=== PATIENT | female | born 1940 | race Caucasian/White ===

== ENCOUNTER 2024-04-13 15:59 | Emergency (ER) | payer OTHER, SELFPAY ==
[2024-04-13 16:01] VITALS: BP 140/75
--- NOTE | 2024-04-13 16:39 | ED.GENMED ---
History of Present Illness
General
Chief Complaint: Fall
Time Seen by Provider: 04/13/24 16:34
Travel History
Have you had any contact with someone who has COVID-19?: No
Do you have any symptoms of coronavirus? Fever > 100 degrees, chills, cough, shortness of breath, sore throat, loss of taste or smell, muscle aches, or headache?: No
History of Present Illness
History of Present Illness:
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 She has head pain and neck pain. She did have 15 seconds of left upper extremity tingling which has since resolved. She denies any other injury. She was
nauseated earlier but nausea has since resolved. She used to take aspirin up until a few weeks ago.
EXAM:
GENERAL: Well appearing but in mild distress
CERVICAL SPINE: She has midline C-spine tenderness, cervical collar is in place
HEAD: There is a small hematoma over the right side of the forehead
CHEST: No chest wall tenderness, normal heart sounds
LUNGS: Equal lung sounds, no respiratory distress
ABDOMEN: No abdominal tenderness, no peritoneal signs
EXTREMITIES: Normal active range of motion, no tenderness
NEURO: Excellent strength all extremities, appropriate mental status, normal speech/language
TIME OF INITIAL ENCOUNTER: 4:40 PM
NUMBER AND COMPLEXITY OF PROBLEMS ADDRESSED AT THE ENCOUNTER
� Chronic conditions affecting care: She last took aspirin a few weeks ago, CAD, high blood pressure
� Acute Exacerbation and/or Progression of Chronic Illness: This is an acute problem
� Differential Diagnosis includes: Intracranial hemorrhage, minor head injury, concussion, cervical spine injury
AMOUNT AND/OR COMPLEXITY OF DATA TO BE REVIEWED AND ANALYZED
� I performed an independent evaluation of and my interpretation is:
EKG:
CT: I personally viewed CT imaging of the brain and the cervical spine and see C1 fracture
X-rays:
Laboratory Studies: Pending
Other:
� Review of other/old records: The patient was admitted here with sick sinus syndrome/pacemaker placement in 2022
� Clinical information was obtained by an independent historian: I spoke to family at bedside
� Prescriptions/Medications Considered but not given:
� Further testing considered but not performed:
RISK OF COMPLICATIONS AND/OR MORBIDITY OR MORTALITY OF PATIENT MANAGEMENT
� Social determinants of health affecting care: Lives at home
� Discussion with other providers: Discussed CT findings with radiology, Dr. Poe�anterior/posterior C1 fracture along with type II fracture of the dens; I spoke to Dr. Odell trauma attending at [facility] who accepts to
his service also. I also called him again to update him of the concern for epidural component at the cervical spine. I reassessed the patient at 6:05 PM and she has excellent upper extremity strength. She has appropriate mental status with a GCS
of 15.
� Escalation of care including admission/observation vs risk of discharge considered: Given patient's age with midline C-spine tenderness, collar was placed immediately upon arrival, CT imaging reviewed. The patient vomited
shortly after she was given Tylenol. Will give IV Tylenol now. Planning transfer to [facility] (family lives in [place]).
Past History
Past History
ED Past Medical History: HTN and Other (Osteoarthritis)
ED Past Surgical History: Orthopedic
Social History
Tobacco: Non-smoker
Alcohol: None
Personal:
Living: with family
Employment: Retired
Family History
Family History: Other (Osteoporosis, Alzheimer's, [place],)
Phy Exam
Physical Exam
Physical Exam:
See HPI
Course
Orders/Labs/Results
Orders:
Orders
04/13/24 16:35
CT Cervical Spine W/o Iv Contr Urgent
Comment:
Reason For Exam: trauma
CT Head W/o Iv Contrast Urgent
Comment:
Reason For Exam: trauma
04/13/24 16:39
Acetaminophen [Tylenol] 1,000 mg PO NOW STA
04/13/24 17:58
Acetaminophen 1000MG/100Ml [Ofirmev] 1,000 mg in 100 ml IV ONCE
Acetaminophen IV Indication:: No IL & No Enteral Access
04/13/24 18:05
Basic Metabolic Panel Urgent
Complete Blood Count/With Diff Urgent
PTT Urgent
Prothrombin Time Urgent
Abnormal Lab Results
04/13/24
18:05
WBC 11.1 H 10^3/uL
(4.8-10.8)
Plt Count 102 L 10^3/uL
(130-400)
MPV 11.7 H fL
(7.4-10.4)
Abs Immat Gran (auto) 0.1 H 10^3/uL
(0-0.05)
Absolute Neuts (auto) 9.0 H 10^3/uL
(1.4-6.5)
Absolute Monos (auto) 0.7 H 10^3/uL
(0.1-0.6)
Immature Gran % 0.6 H %
(0-0.5)
Neutrophils % 81.0 H %
(42.2-75.2)
Lymphocytes % 11.6 L %
(20.5-51.1)
Chloride 96 L mmol/L
(98-107)
BUN 28 H mg/dl
(7-17)
Glucose 169 H mg/dl
(70-99)
04/13/24 18:05
04/13/24 18:05
Vital Signs
Initial and Last Documented VS:
Initial Vital Signs
Temp Pulse Resp BP Pulse Ox
98.1 F 73 20 140/75 94
04/13/24 16:01 04/13/24 16:01 04/13/24 16:01 04/13/24 16:01 04/13/24 16:01
Last Documented Vital Signs
Temp Pulse Resp BP Pulse Ox
98.1 F 62 24 121/54 94
04/13/24 16:01 04/13/24 20:15 04/13/24 20:15 04/13/24 20:00 04/13/24 20:15
*Critical Care Note
Total Time (30-74mins, 75-104mins- exclusive of procedures): Not Applicable
ED Attending Note
-
Portions of this chart may have been created with voice recognition software.� Occasional wrong word or��sound alike� substitutions may have occurred due to the inherent limitations of voice recognition software.
Discharge Plan
Departure
Patient Disposition: [facility]
Date of Disposition: 04/13/24
Time of Disposition: 17:50
Patient with high blood pressure during this ER visit?: Yes
Discharge Problem:
Closed cervical spine fracture
Prescriptions:
No Action
bisoprolol-hydrochlorothiazide 10-6.25 mg Tablet
1 tab PO DAILY
amlodipine 10 mg Tablet
10 mg PO DAILY
aspirin 81 mg Tablet,Delayed Release (Dr/Ec)
81 mg PO DAILY
calcium carbonate [Calcium 600] 600 mg calcium (1,500 mg) Tablet
1,200 mg PO DAILY
cholecalciferol (vitamin D3) [Vitamin D3] 125 mcg (5,000 unit) Tablet
125 mcg PO DAILY
omega 0-ppg-enu-fish oil [Fish Oil] 1,000 mg (120 mg-180 mg) Capsule
1 cap PO DAILY
ascorbic acid (vitamin C) [Vitamin C] 1,000 mg Tablet
1,000 mg PO DAILY
cod liver oil Capsule
1 cap PO DAILY
psyllium Packet
1 packet PO DAILY
vitamin B complex Tablet
1 tab PO DAILY
Referrals:
Jon Patino CRNP [Family Provider] -
Hospital Transfer
Other hospital: [facility]
I certify that the patient requires transfer: Yes
Discussed case with accepting physician: Dr. Odell
Reason for transfer: higher level of care
Interventions
Interventions:
*Risk Screen - Suicide Last Done: 04/13/24 16:01
*General Assessment Last Done: 04/13/24 16:01
*Neglect/Abuse Screening Last Done: 04/13/24 16:01
ED- Fall Risk Assessment Last Done: 04/13/24 17:21
*Nursing Disposition Last Done: 04/13/24 20:28
ED-Musculoskeletal Assessment Last Done: 04/13/24 17:21
ED- Neurological Assessment Last Done: 04/13/24 17:21
ED-Skin Assessment Last Done: 04/13/24 17:21
Discharge Date and Time
Discharge Date/Time: 04/13/24 20:30
Print Language: CAPE VERDEAN
[2024-04-13] MEDS: TYLENOL 1000 MG PO (17:01)
[2024-04-13 17:57] VITALS: BP 128/62
[2024-04-13 18:00] VITALS: BP 122/59
[2024-04-13] MEDS: OFIRMEV 100 IV (18:03)
[2024-04-13 18:04] VITALS: BMI 33.9
[2024-04-13 18:25] LABS: Blood Urea Nitrogen 28 mg/dl (7-17); Calcium 9.9 mg/dl (8.4-10.2); Carbon Dioxide 30 mmol/L (22-30); Chloride 96 mmol/L (98-107); Estimated Creatinine Clearance 71 ml/min; Glucose 169 mg/dl (70-99); Potassium 3.5 mmol/L (3.5-5.1); Sodium 138 mmol/L (135-145); eGFR > 60.00
[2024-04-13 18:27] LABS: % Basophils 0.3 % (0-2); % Eosinophils 0.4 % (0-6); % Immature Granulocytes 0.6 % (0-0.5); % Lymphocytes 11.6 % (20.5-51.1); % Monocytes 6.1 % (1.7-9.3); Absolute Immature Granulocytes 0.1 10^3/uL (0-0.05); Absolute Lymphocytes 1.3 10^3/uL (1.2-3.4); Absolute Monocytes 0.7 10^3/uL (0.1-0.6); Hematocrit 40.8 % (37.0-47.0); Hemoglobin 14.1 g/dL (12.0-16.0); Mean Corp Hgb Conc. 34.6 g/dL (33.0-37.0); Mean Corpuscular Hgb 28.3 pg (27.0-31.0); Mean Corpuscular Volume 81.8 fL (81.0-99.0); Mean Platelet Volume 11.7 fL (7.4-10.4); Nucleated Red Blood Cells % 0 %; Platelet Count 102 10^3/uL (130-400); Red Blood Cell Count 4.99 10^6/uL (4.20-5.40); Red Cell Dist. Width 13.4 % (11.5-14.5); White Blood Cell Count 11.1 10^3/uL (4.8-10.8)
[2024-04-13 18:29] LABS: APTT 28.8 Sec (23.4-35.0); INR 1.08; PT 13.8 Sec (11.4-14.6)
[2024-04-13 19:00] VITALS: BP 131/68
[2024-04-13 20:00] VITALS: BP 121/54
== END 2024-04-13 20:30 | disposition short-term general hospital (02) ==
LOC: EMR 15:59
PROVIDERS: EMERGENCY PHYSICIAN Emergency Medicine; FAMILY PHYSICIAN Nurse Practitioner Family
DX: S12.030A Displaced posterior arch fracture of first cervical vertebra, initial encounter for closed fracture (principal); S12.110A Anterior displaced Type II dens fracture, initial encounter for closed fracture; W19.XXXA Unspecified fall, initial encounter; I10 Essential (primary) hypertension
CPT/HCPCS: 99285; 96374; 70450; 72125; 80048; 85025; 85610; 85730

== ENCOUNTER → 2024-05-12 15:20 | Outpatient (REF) | payer OTHER, SELFPAY | LOC: HWRAD 15:20 | PROVIDERS: ATTENDING PHYSICIAN Neurological Surgery; FAMILY PHYSICIAN Nurse Practitioner Family | DX: S12.000A Unspecified displaced fracture of first cervical vertebra, initial encounter for closed fracture (principal) | CPT/HCPCS: 72125 ==

== ENCOUNTER → 2024-06-09 08:28 | Outpatient (REF) | payer OTHER, SELFPAY | LOC: RAD 08:28 | PROVIDERS: ATTENDING PHYSICIAN Nurse Practitioner Family | DX: Z95.0 Presence of cardiac pacemaker (principal) | CPT/HCPCS: 71046 ==

== ENCOUNTER → 2024-07-22 13:13 | Outpatient (REF) | payer OTHER, SELFPAY | LOC: MRI 13:13 | PROVIDERS: ATTENDING PHYSICIAN Neurological Surgery; FAMILY PHYSICIAN Nurse Practitioner Family | DX: S12.001 Unspecified nondisplaced fracture of first cervical vertebra (principal) | CPT/HCPCS: 72141 ==

== ENCOUNTER 2025-01-22 17:40 | Inpatient (IN) | payer OTHER, SELFPAY ==
[2025-01-22] VITALS (10 sets, daily range): BP systolic 124–157; BP diastolic 56–115; BMI 36.4
--- NOTE | 2025-01-22 13:00 | ED.GENMED ---
ED Provider Triage
<Promise Shelley PA-C - Last Filed: 01/22/25 13:02>
-
Patient seen by provider in Triage?: Seen in Triage
84-year-old female with a history of hypertension, sick sinus syndrome, neck fracture in March 2024 presents for increased confusion over the last several days noticed by her daughter. Her daughter is here with her. We got a note from the family
doctor who saw her today that the patient is more confused than baseline and she was hypoxic in the office to the 80s but not feeling any respiratory distress. They did an EKG apparently in the office which was unchanged. Patient has no complaints
here, she feels fine, she is not short of breath. She has not had any new fever or chills but maybe a slight cough according to her daughter.
A medical screening examination has been initiated by a qualified medical provider. Based on the assessment performed at this time, it has been determined that an emergent medical condition may exist and the patient has been informed that further
medical evaluation and possible additional diagnostic testing may be needed.
HPI: This is a medical evaluation conducted in person to initiate diagnostic evaluation and provide initial therapeutics. Please see further documentation by the treating clinician.
GENERAL: Alert , in no apparent distress
ENT: No visible abnormalities
LUNGS: No acute respiratory distress
NEUROLOGICAL: Alert and oriented
SKIN: Skin intact. No visible changes.
MUSCULOSKELETAL: Moving extremities normally
Brief exam seated in the wheelchair I could see that her right leg looked may be slightly larger than the left leg, it was difficult to assess
PSYCH: Normal and appropriate interaction
Patient is acutely hypoxic although in no respiratory distress she will be placed in a direct emergency department bed.
History of Present Illness
<Promise Shelley PA-C - Last Filed: 01/22/25 13:02>
General
Chief Complaint: Breathing Problem
Time Seen by Provider: 01/22/25 13:05
<Milton Prieto Jr., PA-C - Last Filed: 01/22/25 15:43>
General
Source: patient, spouse and family
Exam Limitations: none
Nursing documentation reviewed up to this point in time: agreed with
History of Present Illness
History of Present Illness:
84-year-old female with past medical history of CAD hypertension sick sinus syndrome presenting to the emergency department today with concerns of low pulse ox seen at the primary care doctor for routine visit. Has felt a little 'off' recently but
denies any specific chest pain shortness of breath no history of known lung disease .
Past History
<Promise Shelley PA-C - Last Filed: 01/22/25 13:02>
Past History
ED Past Medical History: HTN and Other (Osteoarthritis)
ED Past Surgical History: Orthopedic
Social History
Tobacco: Non-smoker
Alcohol: None
Personal:
Living: with family
Employment: Retired
Family History
Family History: Other (Osteoporosis, Alzheimer's, [place],)
Review of Systems
<Milton Prieto Jr., PA-C - Last Filed: 01/22/25 15:43>
Review of Systems
Allergies reviewed?: Yes
All Other Systems: ROS reviewed and negative except as documented in HPI and ROS
Phy Exam
<Milton Prieto Jr., PA-C - Last Filed: 01/22/25 15:43>
Physical Exam
Physical Exam:
GENERAL: Alert , in no apparent distress
EYE: pupils equal and reactive
NECK: Supple, no significant adenopathy.
ENT: o/p clr, mmm.
CARDIAC: Regular rate and rhythm .
LUNGS: Clear breath sounds bilaterally, no acute respiratory distress, no wheezes/rales/rhonchi
ABDOMEN: Soft, without focal tenderness, no r/g, no cvat
NEUROLOGICAL: Alert and oriented, no focal neuro deficits
SKIN: Warm and dry, skin intact.
MUSCULOSKELETAL: No edema, well perfused.
PSYCH: Normal and appropriate interaction.
Scores
<Milton Prieto Jr., PA-C - Last Filed: 01/22/25 15:43>
Heart Failure Risk
Heart Failure Risk Score: Not Applicable
Course
<Promise Shelley PA-C - Last Filed: 01/22/25 13:02>
Orders/Labs/Results
Orders:
Orders
01/22/25 13:28
EKG [Electrocardiogram (*1)] Urgent
Reason for Study: Shortness of Breath
CT Chest PE Study Urgent
Comment:
Reason For Exam: hypoxia immobilized
01/22/25 13:29
EKG- Treatment ONCE
01/22/25 13:36
Complete Blood Count/With Diff Urgent
Comprehensive Metabolic Panel Urgent
NT-proBNP Urgent
Comment: ADD ON
PT/INR [Prothrombin Time] Urgent
Troponin I Urgent
Venous Blood Gas Urgent
%Oxygen/Room Air: 98
01/22/25 14:16
COVID-19 Antigen Urgent
Source: Nasal Swab
Influenza A+B Rapid Molecular Urgent
ELIF Source: Nasal Swab
Specimen Description:
01/22/25 15:20
Add On- LAB Urgent
Tests Added?: BNP
01/22/25 15:38
Furosemide [Lasix] 40 mg IV NOW STA
Abnormal Lab Results
01/22/25
13:36
RBC 5.62 H 10^6/uL
(4.20-5.40)
Hct 48.8 H %
(37.0-47.0)
MCHC 31.6 L g/dL
(33.0-37.0)
Plt Count 123 L 10^3/uL
(130-400)
MPV 10.9 H fL
(7.4-10.4)
Absolute Neuts (auto) 6.7 H 10^3/uL
(1.4-6.5)
Absolute Monos (auto) 1.1 H 10^3/uL
(0.1-0.6)
Monocytes % 10.6 H %
(1.7-9.3)
VBG pCO2 53 H mmHg
(35-48)
VBG HCO3 34.4 H mmol/L
(22-27)
Chloride 96 L mmol/L
(98-107)
Carbon Dioxide 35 H mmol/L
(22-30)
BUN 25 H mg/dl
(7-17)
Glucose 118 H mg/dl
(70-99)
01/22/25 13:36
01/22/25 13:36
Vital Signs
Initial and Last Documented VS:
Initial Vital Signs
Temp Pulse Resp BP Pulse Ox
98.0 F 67 16 124/82 84
01/22/25 12:56 01/22/25 12:56 01/22/25 12:56 01/22/25 12:56 01/22/25 12:56
Last Documented Vital Signs
Temp Pulse Resp BP Pulse Ox
98.0 F 64 26 137/56 95
01/22/25 12:56 01/22/25 15:30 01/22/25 15:30 01/22/25 15:00 01/22/25 15:30
<Milton Prieto Jr., PA-Bettie - Last Filed: 01/22/25 15:43>
Orders/Labs/Results
Orders:
Orders
01/22/25 13:28
EKG [Electrocardiogram (*1)] Urgent
Reason for Study: Shortness of Breath
CT Chest PE Study Urgent
Comment:
Reason For Exam: hypoxia immobilized
01/22/25 13:29
EKG- Treatment ONCE
01/22/25 13:36
Complete Blood Count/With Diff Urgent
Comprehensive Metabolic Panel Urgent
NT-proBNP Urgent
Comment: ADD ON
PT/INR [Prothrombin Time] Urgent
Troponin I Urgent
Venous Blood Gas Urgent
%Oxygen/Room Air: 98
01/22/25 14:16
COVID-19 Antigen Urgent
Source: Nasal Swab
Influenza A+B Rapid Molecular Urgent
ELIF Source: Nasal Swab
Specimen Description:
01/22/25 15:20
Add On- LAB Urgent
Tests Added?: BNP
01/22/25 15:38
Furosemide [Lasix] 40 mg IV NOW STA
Abnormal Lab Results
01/22/25
13:36
RBC 5.62 H 10^6/uL
(4.20-5.40)
Hct 48.8 H %
(37.0-47.0)
MCHC 31.6 L g/dL
(33.0-37.0)
Plt Count 123 L 10^3/uL
(130-400)
MPV 10.9 H fL
(7.4-10.4)
Absolute Neuts (auto) 6.7 H 10^3/uL
(1.4-6.5)
Absolute Monos (auto) 1.1 H 10^3/uL
(0.1-0.6)
Monocytes % 10.6 H %
(1.7-9.3)
VBG pCO2 53 H mmHg
(35-48)
VBG HCO3 34.4 H mmol/L
(22-27)
Chloride 96 L mmol/L
(98-107)
Carbon Dioxide 35 H mmol/L
(22-30)
BUN 25 H mg/dl
(7-17)
Glucose 118 H mg/dl
(70-99)
01/22/25 13:36
01/22/25 13:36
Vital Signs
Initial and Last Documented VS:
Initial Vital Signs
Temp Pulse Resp BP Pulse Ox
98.0 F 67 16 124/82 84
01/22/25 12:56 01/22/25 12:56 01/22/25 12:56 01/22/25 12:56 01/22/25 12:56
Last Documented Vital Signs
Temp Pulse Resp BP Pulse Ox
98.0 F 64 26 137/56 95
01/22/25 12:56 01/22/25 15:30 01/22/25 15:30 01/22/25 15:00 01/22/25 15:30
<Milton Prieto Jr., PA-C - Last Filed: 01/22/25 15:43>
MDM/Problems Addressed
MDM/Problems Addressed:
84-year-old female presenting to the emergency department today with concerns of hypoxia seen as an outpatient. Has felt somewhat 'off' recently denies specific chest pain or shortness of breath. No history of lung disease does have a history of
heart disease. EKG here without emergent findings troponin negative lungs are clear on examination. Hemoglobin normal. CT scan showing possible evidence of pulmonary hypertension as well as potential mild interstitial edema. Patient was given
dose of Lasix but otherwise will need to be admitted for further assessment.
<Milton Prieto Jr., PA-C - Last Filed: 01/22/25 15:43>
*Critical Care Note
Total Time (30-74mins, 75-104mins- exclusive of procedures): Not Applicable
ED Attending Note
<Promise Shelley PA-C - Last Filed: 01/22/25 13:02>
-
Portions of this chart may have been created with voice recognition software.� Occasional wrong word or��sound alike� substitutions may have occurred due to the inherent limitations of voice recognition software.
Discharge Plan
Departure
Patient Disposition: Admit
Date of Disposition: 01/22/25
Time of Disposition: 15:43
Admit to: Telemetry
Admit to doctor: Tiffanie
Presentation/result/management discussed w/ accepting MD/DO: Hospitalist
Patient with high blood pressure during this ER visit?: No
Condition: Good
Covid-19: Not Applicable
Discharge Problem:
Hypoxia
Prescriptions:
No Action
bisoprolol-hydrochlorothiazide 10-6.25 mg Tablet
1 tab PO DAILY
amlodipine 10 mg Tablet
10 mg PO DAILY
aspirin 81 mg Tablet,Delayed Release (Dr/Ec)
81 mg PO DAILY
calcium carbonate [Calcium 600] 600 mg calcium (1,500 mg) Tablet
1,200 mg PO DAILY
cholecalciferol (vitamin D3) [Vitamin D3] 125 mcg (5,000 unit) Tablet
125 mcg PO DAILY
omega 9-yei-cah-fish oil [Fish Oil] 1,000 mg (120 mg-180 mg) Capsule
1 cap PO DAILY
ascorbic acid (vitamin C) [Vitamin C] 1,000 mg Tablet
1,000 mg PO DAILY
cod liver oil Capsule
1 cap PO DAILY
psyllium Packet
1 packet PO DAILY
vitamin B complex Tablet
1 tab PO DAILY
Referrals:
Jon Patino CRNP [Family Provider] -
Interventions
Interventions:
*Risk Screen - Suicide Last Done: 01/22/25 12:56
*General Assessment Last Done: 01/22/25 13:21
*Neglect/Abuse Screening Last Done: 01/22/25 12:56
ED- Fall Risk Assessment Last Done: 01/22/25 13:21
*ED COVID-19 Vaccine History Last Done: 01/22/25 13:21
ED- Pulmonary Assessment Last Done: 01/22/25 13:28
ED- Neurological Assessment Last Done: 01/22/25 13:21
ED- Cardiac Assessment Last Done: 01/22/25 13:28
ED Swallowing Screen Last Done: 01/22/25 13:21
Discharge Date and Time
Print Language: TURKISH
[2025-01-22 13:46] LABS: Venous Blood Gas HCO3 34.4 mmol/L (22-27); Venous Blood Gas O2 Sat % 77.2 %; Venous Blood Gas pCO2 53 mmHg (35-48); Venous Blood Gas pH 7.42 (7.32-7.43); Venous Blood Gas pO2 42 mmHg (30-50)
[2025-01-22 13:56] LABS: INR 1.06; PT 14.3 Sec (11.4-14.6)
[2025-01-22 13:57] LABS: % Basophils 0.5 % (0-2); % Eosinophils 1.7 % (0-6); % Immature Granulocytes 0.4 % (0-0.5); % Monocytes 10.6 % (1.7-9.3); % Neutrophils 62.8 % (42.2-75.2); Absolute Basophils 0.1 10^3/uL (0-0.2); Absolute Eosinophils 0.2 10^3/uL (0-0.7); Absolute Lymphocytes 2.6 10^3/uL (1.2-3.4); Absolute Monocytes 1.1 10^3/uL (0.1-0.6); Absolute Neutrophils 6.7 10^3/uL (1.4-6.5); Hematocrit 48.8 % (37.0-47.0); Hemoglobin 15.4 g/dL (12.0-16.0); Mean Corp Hgb Conc. 31.6 g/dL (33.0-37.0); Mean Corpuscular Hgb 27.4 pg (27.0-31.0); Mean Corpuscular Volume 86.8 fL (81.0-99.0); Mean Platelet Volume 10.9 fL (7.4-10.4); Nucleated Red Blood Cells % 0 %; Platelet Count 123 10^3/uL (130-400); Red Blood Cell Count 5.62 10^6/uL (4.20-5.40); Red Cell Dist. Width 13.9 % (11.5-14.5); White Blood Cell Count 10.6 10^3/uL (4.8-10.8)
[2025-01-22 13:58] LABS: ALT (SGPT) 15 U/L (0-35); AST (SGOT) 25 U/L (14-36); Albumin 4.9 g/dl (3.5-5.0); Alkaline Phosphatase 83 U/L (38-126); Blood Urea Nitrogen 25 mg/dl (7-17); Calcium 9.4 mg/dl (8.4-10.2); Carbon Dioxide 35 mmol/L (22-30); Chloride 96 mmol/L (98-107); Glucose 118 mg/dl (70-99); Potassium 3.9 mmol/L (3.5-5.1); Sodium 140 mmol/L (135-145); Total Protein 8.1 g/dl (6.3-8.2); eGFR > 60.00
[2025-01-22 14:09] LABS: Troponin I < 0.012 ng/ml
[2025-01-22 15:04] LABS: COVID-19 Antigen Negative (Negative)
[2025-01-22] MEDS: LASIX 40 MG IV (15:50)
--- NOTE | 2025-01-22 16:02 | HPS.HSE ---
Family Physician
-
Family Physician: ANNE Mcknight
Chief Complaint
-
Confusion, hypoxia, headache
History of Present Illness
84-year-old female with daughter presenting for increased confusion over the last several days. She was noted to be hypoxic today at her PCP with pulse ox in the 80s but no acute respiratory distress. She had EKG done in office which did been
unchanged since prior. In the ER CT PE study showed possible evidence of pulm HTN and mild pulmonary edema she was given single dose of Lasix placed on 3 L nasal cannula with oxygen in the mid 90s.
Patient denies fever, chills, chest pain, palpitations, cough, shortness of breath, abdominal pain, nausea, vomiting, diarrhea, urinary symptoms. She has past medical history of hypertension, osteoarthritis, SSS-Status post dual-chamber permanent
pacemaker Medtronic on 03/07/2023 Thrombocytopenia-unclear
Medical History
Past Medical History
Past Medical History: Reports Other
Additional Past Medical History:
SSS-Status post dual-chamber permanent pacemaker Medtronic on 03/07/2023
HTN
Thrombocytopenia
Osteoarthritis
Past Surgical History: Reports Other
Additional Past Surgical History:
Hemorrhoidectomy
Left ankle surgery
Left knee surgery
Laminectomy
SSS-Status post dual-chamber permanent pacemaker Medtronic on 03/07/2023
Social History
Tobacco: Non-smoker
Alcohol: None
Drug: None
Personal: Single
Living: With Family (Daughter Flora)
Employment: Retired
Family History
Family History: Other (Mother old age Alzheimer's father age 70 unsure 1 sister Alzheimer's 3 brothers 1 age 55 unsure 2 other brothers patient is unsure)
Allergies / Home Medications
Allergies reflects when Allergies were last updated in [facility].
Home Medications with original date entered in [facility]
Allergy/Medication List:
Allergies
Allergy/AdvReac Type Severity Reaction Status Date / Time
cephalexin monohydrate Allergy Unknown Verified 01/22/25 12:59
[From Keflex]
Latex, Natural Rubber Allergy Unknown Verified 01/22/25 12:59
Home Medications
amlodipine 10 mg tablet 10 mg PO DAILY Blood pressure 03/28/18
acetaminophen 500 mg tablet (Tylenol Extra Strength) 1,000 mg PO Q6HPRN PRN mild pain/LINDA 01/22/25
bisoprolol fumarate 5 mg tablet 5 mg PO DAILY 01/22/25
psyllium husk 3.4 gram/5.4 gram oral powder (Metamucil) 1 tbsp PO DAILY 01/22/25
Review of Systems
-
History Source: Patient
A 12 point ROS was completed and negative except as noted: Yes
Constitutional: Denies Fever, Fatigue or Chills
EENT: Denies Sore Throat or Runny Nose
Respiratory: Reports Other (Hypoxia at rest and with activity); Denies Cough or Trouble Breathing
Cardiac: Denies Chest Pain, Diaphoresis, Palpitations or Syncope
Abdomen/GI: Denies Abdominal Pain, Nausea, Vomiting, Diarrhea, Constipated, Bloody Stools, Black Stools or Anorexia
: Denies Dysuria, Frequency, Flank Pain, Incontinence, Difficulty Voiding or Urgency
Musculoskeletal: Reports Edema (Trace bilateral lower legs); Denies Joint Pain or Joint Swelling
Skin: Reports Other (Right lower leg lateral aspect erythema small amount around scabbed area); Denies Itching or Rash
Neurological: Reports Headache (Posterior headache); Denies Dizzy
Endocrine: Reports No Symptoms
Hematologic/Lymphatic: Reports No Symptoms
Psych: Reports Calm
Physical Exam
Vital Signs
Vital Signs
Temp Pulse Resp BP Pulse Ox
98.0 F 86 26 137/84 95
01/22/25 12:56 01/22/25 15:50 01/22/25 15:30 01/22/25 15:50 01/22/25 15:30
Physical Exam
GI: Soft, Non Tender, Non Distended, Normal Bowel Sounds and No Hepatosplenomegaly
Rectal: Deferred by Provider
Genito-urinary: Other (Pure wick cath draining clear yellow)
Musculoskeletal: No Clubbing, No Cyanosis, Edema, Left Lower Extremity (+1 lower leg) and Edema, Right Lower Extremity (+1 lower leg with Right lower leg lateral aspect erythema small amount around scabbed area); No Edema, Left Upper Extremity or
Edema, Right Upper Extremity
Skin: Warm, Dry and Other (Right lower leg lateral aspect erythema small amount around scabbed area); No Rash
Neuro: AO x 3 (Name, place, year, president but not how siblings does know all of her medical history is aware of current confusion but unsure why), No Motor Deficits, Nonfocal/grossly intact, Cranial Nerves Intact and No Sensory Deficits; No
Slurred Speech, Facial Droop, Tremors or Sedated
Psych: Calm
Laboratory Results
-
01/22/25 13:36
01/22/25 13:36
Laboratory Results
PT 14.3 Sec (11.4-14.6) 01/22/25 13:36
INR 1.06 01/22/25 13:36
Total Bilirubin 1.0 mg/dl (0.2-1.3) 01/22/25 13:36
AST 25 U/L (14-36) 01/22/25 13:36
ALT 15 U/L (0-35) 01/22/25 13:36
Alkaline Phosphatase 83 U/L (38-126) 01/22/25 13:36
Troponin I < 0.012 ng/ml 01/22/25 13:36
Data Reviewed
-
CT Scan: Report Reviewed by me
Lab Data: Labs Reviewed by me
Impression/Plan
-
Impression/plan:
Admit to telemetry
#Acute hypoxic respiratory insufficiency secondary to PULMONARY HTN/ PULM EDEMA
COVID/flu-negative
-84% RA, 95% 2 L nasal cannula
-I/O, daily weights
-Patient given Lasix 40 mg once in ER
-BNP 371
-Consult [facility]ology
-Repeat 2D echo
-Consult pulm
2D echo 03/07/2023: EF 55-60%, normal LVS LVSF, no wall abnormalities, mild LVH, trace AR, trace TR, PASP [address] PE study:
1. No evidence of central pulmonary embolism.
2. Prominent caliber bilateral right and main pulmonary arteries. Is there a history of pulmonary artery hypertension?
3. Slight prominence of the pulmonary interstitium and some minor groundglass opacification bilaterally. Findings could represent mild interstitial edema.
4. Cardiomegaly.
5. Elevated right hemidiaphragm again seen.
6. Predominantly stable small volume loculated fluid within the left major fissure.
7. Small bilateral simple renal cysts.
#Headache with confusion unclear etiology
Oriented to name, place, year, president forgetful of how siblings passed she states she normally knows this
-We will check CT head
-Tylenol 650 mg now and as needed
# Uncontrolled HTN/HTN�benign
bp 145/115
Continue amlodipine 10 mg daily, bisoprolol 5 mg daily
-IV Hydralazine 10 mg every 6 hours SBP> 165
Possible infected area surrounding scab right lower extremity
-Right lower leg lateral aspect erythema small amount pea-sized around scabbed area
-Will apply bacitracin ointment
#Acute on chronic thrombocytopenia unclear etiology
Plt 123 prior March 2024
Follow CBC
SSS-Status post dual-chamber permanent pacemaker [employer] on 03/07/2023
-Placed by [facility]ology
#Osteoarthritis
-Continue vitamin D3, calcium carbonate
DVT prophylaxis
Subcu heparin
Full code
[2025-01-22 16:15] LABS: NT-proBNP 371 pg/ml
[2025-01-22] MEDS: TYLENOL 650 MG PO (16:57)
[2025-01-22] MEDS: LOVENOX 40 MG SC (22:24)
[2025-01-23] VITALS (7 sets, daily range): BP systolic 123–151; BP diastolic 64–76; PULSE 63–65; O2SAT 95; BMI 36.0
[2025-01-23 07:44] LABS: % Basophils 0.3 % (0-2); % Eosinophils 1.9 % (0-6); % Immature Granulocytes 0.4 % (0-0.5); % Lymphocytes 26.8 % (20.5-51.1); % Neutrophils 59.6 % (42.2-75.2); Absolute Eosinophils 0.2 10^3/uL (0-0.7); Absolute Lymphocytes 2.4 10^3/uL (1.2-3.4); Absolute Neutrophils 5.4 10^3/uL (1.4-6.5); Hematocrit 45.4 % (37.0-47.0); Hemoglobin 14.9 g/dL (12.0-16.0); Mean Corp Hgb Conc. 32.8 g/dL (33.0-37.0); Mean Corpuscular Hgb 27.9 pg (27.0-31.0); Mean Corpuscular Volume 84.9 fL (81.0-99.0); Mean Platelet Volume 10.7 fL (7.4-10.4); Nucleated Red Blood Cells % 0 %; Platelet Count 108 10^3/uL (130-400); Red Blood Cell Count 5.35 10^6/uL (4.20-5.40)
--- NOTE | 2025-01-23 08:21 | CON.CAR ---
Addendum entered and electronically signed by Lane Jones MD 01/23/25 14:02:
I saw and examined the patient.
The Medication Aide's note was reviewed and I agree with the note.
Comment: Briefly, 84-year-old woman with past medical history of permanent pacemaker for sick sinus syndrome who presents with altered mental status and was found to be hypoxic with likely pulmonary edema on CT chest concerning for acute
decompensated heart failure.
Patient does not carry diagnosis of heart failure and is not maintained on a diuretic as an outpatient
However she has been hypoxic here and is still requiring supplemental oxygen today
CT chest suggestive of pulmonary edema
However proBNP is only 371 here
Agree with trial of IV diuresis to see if this improves her respiratory status, wean oxygen as able
Check echo to assess for new cardiomyopathy or valvular pathology
Rest per Shama Contreras
Original Note:
Consultation
Consultation Request
Date/Time Consultation Requested: 01/23/2025
Date/Time Consultation Performed: 01/23/2025
Requesting Provider: Dr. Moreno
Performing Provider: Shama Contreras PA-C for Dr. Jones
Reason for Consultation: Hypoxia, pulmonary edema on CT
Medical History
-
History of Present Illness:
HPI: Maricruz is an 84 year old female with PMH of SSS s/p PPM placement 02/2023 and HTN who presented to [facility] for evaluation of hypoxia which was noted at PCP office. Reportedly there was also concern regarding some confusion over the past few days,
but patient does not recall this when asked this AM. She denies any chest pain, palpitations, dizziness, lightheadedness, LE edema, SOB, or weight gain. In ER, she was placed on 3L NC and had CT of chest which showed possible pulmonary HTN as well
as mild interstitial edema. She was given a single dose of IV lasix in the ER and was admitted for further workup and evaluation. She continues to feel well this AM with no complaints. Cardiology consulted given interstitial edema on CT scan. Head
CT without acute intracranial abnormality.
PMH:
SSS s/p Medtronic PPM 03/07/2023
HTN
Past Medical History
Past Medical History: Other (in HPI)
Past Surgical History: Cardiac (PPM 02/2023), Orthopedic and Other (hemorrhoidectomy)
Social History
Tobacco: Non-Smoker
Alcohol: None
Drug: None
Personal:
Living: With Family
Employment: Retired
Family History
Family History: Cancer and Hypertension
Allergies / Home Medications
Allergy/AdvReac Type Severity Reaction Status Date / Time
cephalexin monohydrate Allergy Unknown Verified 01/22/25 12:59
[From Keflex]
Latex, Natural Rubber Allergy Unknown Verified 01/22/25 12:59
�Medication �Instructions �Recorded �Confirmed �Type
amlodipine 10 mg tablet 10 mg PO DAILY Blood pressure 03/28/18 01/22/25 History
acetaminophen 500 mg tablet 1,000 mg PO Q6HPRN PRN mild pain/LINDA 01/22/25 01/22/25 History
(Tylenol Extra Strength)
bisoprolol fumarate 5 mg tablet 5 mg PO DAILY 01/22/25 01/22/25 History
psyllium husk 3.4 gram/5.4 gram 1 tbsp PO DAILY 01/22/25 01/22/25 History
oral powder (Metamucil)
Review of Systems
-
History Source: Patient
All other systems: Negative unless noted
Physical Exam
Vital Signs
Temp Pulse Resp BP Pulse Ox
98.1 F 61 20 131/64 95
01/23/25 07:42 01/23/25 07:42 01/23/25 07:42 01/23/25 07:42 01/23/25 07:42
Lab Results
01/23/25 07:12
Troponin I < 0.012 ng/ml 01/22/25 13:36
Gby-C-Tmvbuzhdyyo Pept 371 pg/ml 01/22/25 13:36
Physical Exam
General: Well Developed, Well Nourished and No Apparent Distress
HEENT: Normocephalic, Anicteric and Moist Mucous Membranes
Respiratory: Clear and Non Labored Respirations
Cardiac: S1/S2 and Regular Rhythm
Musculoskeletal: No Clubbing, No Cyanosis and No Edema
Skin: Warm and Dry
Neuro: AO x 3 and Nonfocal/Grossly Intact
Psych: Calm
Impression / Plan
-
PCP: ANNE Mcknight
Harness Tier: Dr. Meeks
PMH:
Hypoxia
Confusion
Pulmonary edema on CT of chest
SSS s/p Medtronic PPM 03/07/2023
HTN
Lexiscan mibi 02/29/16: Large predominantly fixed anterior defect consistent with infarction, small area of reversibility at the apex and with preserved EF this suggests breast attenuation, EF 58%
Echo 08/25/2016: EF 55-60%, no significant valve disease
Echo 03/07/2023: EF 55-60%, mild cLVH, trace AR, trace TR, estimated PAP 38 mmHg
Echo 01/23/2025: Study pending
Plan:
-Presented with confusion and hypoxia which was noted at PCP office.
-Pulmonary HTN and mild interstitial edema noted on CT of chest 01/22. ProBNP 371.
-Given a single dose of IV lasix 40mg. Weight down 2lbs overnight, down to 216 lbs.
-Creat stable at 0.7. Continues to deny SOB, but remains on 4L NC.
-Will give another dose of IV lasix today.
-Follow daily weights, I&Os.
-Check echo today. Prior echo in 2022 noted preserved EF w/ no significant valvular disease.
-BP stable this AM, continue bisoprolol and amlodipine
-Troponin negative x1. No chest pain. ECG SR with 1st degree AV block.
-No arrhythmias noted on telemetry.
-K 3.7, will replete.
HPI: Maricruz is an 84 year old female with PMH of SSS s/p PPM placement 02/2023 and HTN who presented to [facility] for evaluation of hypoxia which was noted at PCP office. Reportedly there was also concern regarding some confusion over the past few days,
but patient does not recall this when asked this AM. She denies any chest pain, palpitations, dizziness, lightheadedness, LE edema, SOB, or weight gain. In ER, she was placed on 3L NC and had CT of chest which showed possible pulmonary HTN as well
as mild interstitial edema. She was given a single dose of IV lasix in the ER and was admitted for further workup and evaluation. She continues to feel well this AM with no complaints. Cardiology consulted given interstitial edema on CT scan. Head
CT without acute intracranial abnormality.
Data Reviewed
-
EKG: Tracing Personally Visualized and interpreted
CT Scan: Report Reviewed by me
Labs: Labs Reviewed by me
Old Records: Reviewed
[2025-01-23 08:38] LABS: ALT (SGPT) 13 U/L (0-35); AST (SGOT) 22 U/L (14-36); Albumin 4.1 g/dl (3.5-5.0); Alkaline Phosphatase 79 U/L (38-126); Blood Urea Nitrogen 22 mg/dl (7-17); Calcium 9.2 mg/dl (8.4-10.2); Carbon Dioxide 37 mmol/L (22-30); Chloride 96 mmol/L (98-107); Estimated Creatinine Clearance 69 ml/min; Glucose 99 mg/dl (70-99); HDL Cholesterol 51 mg/dl; LDL Cholesterol, Calculated 75 mg/dl; Potassium 3.7 mmol/L (3.5-5.1); Sodium 140 mmol/L (135-145); Total Cholesterol 143 mg/dl (50-199); Total Protein 7.2 g/dl (6.3-8.2); Triglyceride 86 mg/dl (10-149); Very Low Density Lipoprotein 17 mg/dl (0-30); eGFR > 60.00
--- NOTE | 2025-01-23 09:24 | PTOTSP ---
pt currently requires supervision to no assistance to complete simple ADLs, functional transfers, ambulation. pt currently requires 4LO2, does not wear at baseline. will defer to PT for endurance, ambulation. no acute OT needs identified at this
time, will sign off.
[2025-01-23] MEDS: NORVASC 10 MG PO (10:00)
[2025-01-23] MEDS: ZEBETA 5 MG PO (10:00)
[2025-01-23] MEDS: KCL 40 MEQ PO (10:04)
[2025-01-23] MEDS: LASIX 40 MG IV (10:04)
--- NOTE | 2025-01-23 12:36 | CM ---
Met with patient to obtain information for assessment. Patient's granddaughter was at bedside. Patient stated that she lives with her son, daughter in law and their children (Her grandchildren) in a two story home with one step. Patient stated that
she is independent/supervision with bathing, dressing, personal care and all ADLs. She does have a walker she uses and a neck brace. She has never had VN services and has not been to a SNF.
Patient has a prescription plan and uses, [facility] pharmacy in [place] for all of her medications.
Her PCP is, Jon Patino.
Patient stated that she is hopeful that she will be able to return home when stable. Will watch for o2 needs.
--- NOTE | 2025-01-23 13:36 | CON.PUL ---
Consultation
Consultation Request
Date/Time Consultation Requested: 01/23/2025
Date/Time Consultation Performed: 01/23/2025
Requesting Provider: Dr. Moreno
Performing Provider: Dr. Jas Beatty
Medical History
-
History of Present Illness:
84-year-old female who presented with his daughter to the emergency room with increased confusion over the last several days. At primary care doctor's office she was found to be hypoxic down to 80%. Asymptomatic from the pulmonary perspective.
Evaluation including a CT of the chest that showed possible evidence of pulmonary hypertension with mild pulmonary edema, diuresis was started. She required low rate supplemental oxygen.
She denies any previous pulmonary issues.
Denies cough, fevers, phlegm production, feeling sick.
Past Medical History
Past Medical History: Other (See assessment and plan)
Social History
Tobacco: Non-smoker
Alcohol: None
Drug: None
Personal: Single
Living: With Family (José Miguel Daniels)
Employment: Retired
Family History
Family History: Reviewed & Not Pertinent
Allergies / Home Medications
Allergies
Allergy/AdvReac Type Severity Reaction Status Date / Time
cephalexin monohydrate Allergy Unknown Verified 01/22/25 12:59
[From Keflex]
Latex, Natural Rubber Allergy Unknown Verified 01/22/25 12:59
Home Medications
�Medication �Instructions �Recorded �Confirmed �Last Taken �Type
amlodipine 10 mg tablet 10 mg PO DAILY Blood pressure 03/28/18 01/22/25 Unknown History
acetaminophen 500 mg tablet 1,000 mg PO Q6HPRN PRN mild pain/LINDA 01/22/25 01/22/25 Unknown History
(Tylenol Extra Strength)
bisoprolol fumarate 5 mg tablet 5 mg PO DAILY 01/22/25 01/22/25 Unknown History
psyllium husk 3.4 gram/5.4 gram 1 tbsp PO DAILY 01/22/25 01/22/25 Unknown History
oral powder (Metamucil)
Review of Systems
-
History Source: Patient
All other systems: Negative unless noted
Vitals / Labs / Diagnostic Testing
Vital Signs
Temp Pulse Resp BP Pulse Ox
98.1 F 61 20 131/64 95
01/23/25 07:42 01/23/25 07:42 01/23/25 07:42 01/23/25 07:42 01/23/25 07:42
Lab Data
01/23/25 07:12
01/23/25 07:12
Laboratory Results
01/22/25
13:36
PT 14.3
INR 1.06
Microbiology
01/22/25 14:16 Nasal Swab Influenza Types A & B (RUDY) - Final
Negative for Influenza A & B, NAAT
Negative results must be combined with clinical observations
and patient history.
Nucleic Acid Amplification test (NAAT)performed on the
[employer] NOW platform.
Diagnostic Testing:
Physical Exam
-
HEENT: Normocephalic
Cardiovascular: S1/S2
Respiratory: Non-Labored Respirations
GI: Soft and Non Distended
Neurology: Awake, Oriented and No Motor Deficits
Skin: Warm
General: Comfortable
Assessment
-
84-year-old woman with past medical history noted, admitted with confusion. Found to be hypoxemic. CT chest demonstrated possible evidence for pulmonary hypertension, pulmonary edema. We were consulted for evaluation on 01/22/2025.
Acute hypoxemic respiratory insufficiency-likely pulmonary edema
84% on room air-95% on 2 L nasal cannula.
COVID/flu negative
proBNP 371
Toxic metabolic encephalopathy/headache
CT head negative
Right hemidiaphragm elevation
Conditions present prior admission:
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
Hypertension
Thrombocytopenia
Osteoarthritis
History of laminectomy
Non-smoker
Assessment and plan:
Admitted with confusion and hypoxemia-CT chest noted with increased interstitial markings and subtle groundglass opacities bilaterally. No evidence for acute pulmonary embolism.
Also suggestion of possible ? pulmonary hypertension.
Prior echocardiogram noted in 2022 with mild pulmonary hypertension.
-
proBNP not significantly elevated-agree with trial of diuresis first-cardiology correspondence reviewed.
Follow electrolytes and renal function.
-
Patient denies any pulmonary symptoms. Denies shortness of breath, weight gain or weight loss.
Usually at home she states that she is active around the house without significant limitations.
There is no evidence for infection
There is no evidence for interstitial lung disease
Patient denies any prior history of pulmonary problems
-
Patient does not appear toxic
Lung exam is clear to 2024 1:50 PM.
Currently on room air sitting comfortably in bed. Personally checked pulse oximetry and initially was 89%, after taking few deep breath pulse ox increased to 95%. Again she feels comfortable.
Home oxygen assessment tomorrow
-
Echocardiogram pending-if there is significant pulmonary hypertension with RV dysfunction and there is no improvement after diuresis, then will need evaluation for pulmonary hypertension.
VBG 01/22/2025 noted: 7.42/53/42.
Patient does have some degree of metabolic alkalosis. Denies snoring, denies chronic fatigue.
-
Including: sleep study/VQ scan etc. If she improves this can be followed in the outpatient setting.
-
Will follow.

Data reviewed:
2D echo 03/07/2023: EF 55-60%, normal LVS LVSF, no wall abnormalities, mild LVH, trace AR, trace TR, PASP 38 mmHg
-
CT angiogram: 2/27/2025Reviewed, showed no evidence for pulmonary embolism.
Prominent caliber bilateral right and main pulmonary arteries. Slight prominence of pulmonary interstitium with minor groundglass opacification bilaterally. Interstitial edema.
Cardiomegaly. Elevated right hemidiaphragm. Small amount of loculated fluid in the left major fissure.
--- NOTE | 2025-01-23 16:24 | W.PN.HOSP.TC ---
Today's Communication/Plan
-
see plan
Assessment / Plan
Assessment / Plan
Impression:
Acute hypoxemic respiratory insufficiency secondary to transient pulmonary edema
Metabolic encephalopathy secondary to above, currently resolved
Other conditions:
Sick sinus syndrome status post dual-chamber pacemaker 03/18
Essential hypertension.
Chronic metabolic alkalosis
Chronic thrombocytopenia of unknown significance
Plan:
Acute hypoxic respiratory insufficiency secondary to transient pulmonary edema
CT scan of the chest on admission negative for pulm embolism and findings consistent with groundglass appearance.
Patient with no prior history of heart failure or CAD
Natriuretic peptide within normal limits.
Echocardiogram with LVEF of 61%. Mildly enlarged RV with pulmonary hypertension PAP 38 mmHg.
ECG and cardiac markers not consistent with ischemia
Immediate response to IV Lasix with resolution of symptoms.
Currently asymptomatic and weaned off O2 supplementation
Patient with no prior history of COPD. Dyspnea now has chronic metabolic alkalosis. VBG not suggestive of respiratory acidosis although
Noted right hemidiaphragm elevation could play a role to current presentation with possibility of reexpansion of pulmonary edema.
Hold further diuresis.
Monitor overnight.
Home O2 assessment prior to discharge.
Will need to follow-up with cardiology and pulmonary services outpatient
Will need further evaluation including PFTs as outpatient.
Discussed with pulmonary
Discussed with patient's son at the bedside.
Anticipated Discharge: 24 - 48 hours
Subjective/Interval History
-
Date of Service: January 23, 2025
Objective Data
-
Labs:
Laboratory Results
01/23/25
07:12
WBC 9.0
Hgb 14.9
Hct 45.4
Plt Count 108 L
Sodium 140
Potassium 3.7
Chloride 96 L
Carbon Dioxide 37 H
BUN 22 H
Creatinine 0.7
Glucose 99
Calcium 9.2
Total Bilirubin 1.0
AST 22
ALT 13
Alkaline Phosphatase 79
Vital Signs:
Vital Signs
Temp Pulse Resp BP Pulse Ox
98.3 F 70 20 127/67 97
01/23/25 14:51 01/23/25 14:51 01/23/25 14:51 01/23/25 14:51 01/23/25 14:51
I&O
01/22/25 01/23/25 01/24/25
06:59 06:59 06:59
Intake Total 120 / 120 720 / 720
Output Total 1400 / 1400
Balance -1280 / -1280 720 / 720
Physical Exam
-
General: Well Developed and No Apparent Distress
HEENT: Normocephalic, Atraumatic and Moist Mucous Membranes
Respiratory: Clear to Auscultation
Cardiac: Regular Rhythm and S1/S2; Negative Murmur, Rub or Gallop
GI: Soft, Nontender, Nondistended and Normal Bowel Sounds; Negative Organomegaly
Rectal: Deferred by Provider
Musculoskeletal: No Clubbing, No Cyanosis and No Edema
Skin: Negative Rash
Neuro: Nonfocal/Grossly Intact
[2025-01-23] MEDS: LOVENOX 40 MG SC (18:01)
[2025-01-24 03:27] VITALS: BP 115/66
[2025-01-24 06:21] VITALS: BMI 36.0
--- NOTE | 2025-01-24 07:36 | W.PN.CARDCBS ---
Addendum entered and electronically signed by Eros Kulkarni MD 01/24/25 10:19:
Patient seen and examined
Agree with PA-C note
Agree with PA-C assessment
Exam:
As per PA-C note
Alert and orient x 3
Nonfocal neurologically
Lungs with mild diffuse rhonchi and no rales
Cor regular no murmur
Abdomen soft nontender
No extremity edema
Impression:
Hypoxia
Confusion
Pulmonary edema on CT of chest
SSS s/p Medtronic PPM 03/07/2023
HTN
Lexiscan mibi 02/29/16: Large predominantly fixed anterior defect consistent with infarction, small area of reversibility at the apex and with preserved EF this suggests breast attenuation, EF 58%
Echo 08/25/2016: EF 55-60%, no significant valve disease
Echo 03/07/2023: EF 55-60%, mild cLVH, trace AR, trace TR, estimated PAP 38 mmHg
Echo 01/23/2025: EF 61%, mildly enlarged RV size, aortic sclerosis without stenosis, mild TR, estimated PAP 38 mmHg
Plan:
-Presented with confusion and hypoxia which was noted at PCP office.
-Pulmonary HTN and mild interstitial edema noted on CT of chest 01/22. ProBNP 371.
-Given IV lasix 40mg on 01/22 and 01/23. Weight stable overnight at 216 lbs, no improvement in oxygen requirement.s
-Will hold off on further lasix at this time. Given her BNP and no significant change with Lasix I do not feel that she has a need for Lasix moving forward and we will discontinue
-Creat was 0.7 01/23. Stable creatinine with unknown was 30-1 BUN to creatinine ratio on January 24
-Despite remaining on 4L NC, denies SOB.
-Follow daily weights, I&Os.
-Echo 01/23 noted preserved EF w/ no significant valvular disease. PA pressures stable compared to 2022
-Continue bisoprolol and amlodipine
-Follow up arranged
Original Note:
Today's Communication / Plan
-
Hold off on further lasix at this time
Await AM labs
Cardiology follow up arranged
Impression / Plan
-
PCP: ANNE Mcknight
Pastrycook: Dr. Meeks
PMH:
Hypoxia
Confusion
Pulmonary edema on CT of chest
SSS s/p Medtronic PPM 03/07/2023
HTN
Lexiscan mibi 02/29/16: Large predominantly fixed anterior defect consistent with infarction, small area of reversibility at the apex and with preserved EF this suggests breast attenuation, EF 58%
Echo 08/25/2016: EF 55-60%, no significant valve disease
Echo 03/07/2023: EF 55-60%, mild cLVH, trace AR, trace TR, estimated PAP 38 mmHg
Echo 01/23/2025: EF 61%, mildly enlarged RV size, aortic sclerosis without stenosis, mild TR, estimated PAP 38 mmHg
Plan:
-Presented with confusion and hypoxia which was noted at PCP office.
-Pulmonary HTN and mild interstitial edema noted on CT of chest 01/22. ProBNP 371.
-Given IV lasix 40mg on 01/22 and 01/23. Weight stable overnight at 216 lbs, no improvement in oxygen requirement.s
-Will hold off on further lasix at this time.
-Creat was 0.7 01/23. Await AM labs 01/24.
-Despite remaining on 4L NC, denies SOB.
-Follow daily weights, I&Os.
-Echo 01/23 noted preserved EF w/ no significant valvular disease. PA pressures stable compared to 2022
-Continue bisoprolol and amlodipine
-Follow up arranged
HPI: Maricruz is an 84 year old female with PMH of SSS s/p PPM placement 02/2023 and HTN who presented to [facility] for evaluation of hypoxia which was noted at PCP office. Reportedly there was also concern regarding some confusion over the past few days,
but patient does not recall this when asked this AM. She denies any chest pain, palpitations, dizziness, lightheadedness, LE edema, SOB, or weight gain. In ER, she was placed on 3L NC and had CT of chest which showed possible pulmonary HTN as well
as mild interstitial edema. She was given a single dose of IV lasix in the ER and was admitted for further workup and evaluation. She continues to feel well this AM with no complaints. Cardiology consulted given interstitial edema on CT scan. Head
CT without acute intracranial abnormality.
Progress Note - Pastrycook
Subjective
Date of Service: January 24, 2025
No SOB, but remains on O2
Objective
Labs:
01/23/25 07:12
Labs
Hgb 14.9 g/dL (12.0-16.0) 01/23/25 07:12
Hct 45.4 % (37.0-47.0) 01/23/25 07:12
Plt Count 108 10^3/uL (130-400) L 01/23/25 07:12
PT 14.3 Sec (11.4-14.6) 01/22/25 13:36
INR 1.06 01/22/25 13:36
Sodium 140 mmol/L (135-145) 01/23/25 07:12
Potassium 3.7 mmol/L (3.5-5.1) 01/23/25 07:12
BUN 22 mg/dl (7-17) H 01/23/25 07:12
Creatinine 0.7 mg/dL (0.6-1.0) 01/23/25 07:12
Glucose 99 mg/dl (70-99) 01/23/25 07:12
Troponins
01/22/25
13:36
Troponin I < 0.012
Vital Signs and I&O:
Vital Signs
Temp Pulse Resp BP Pulse Ox
98.7 F 68 18 115/66 93
01/24/25 03:27 01/24/25 03:27 01/24/25 03:27 01/24/25 03:27 01/24/25 03:27
Vital Signs
Temp Pulse Resp BP Pulse Ox
98.7 F 68 18 115/66 93
01/24/25 03:27 01/24/25 03:27 01/24/25 03:27 01/24/25 03:27 01/24/25 03:27
Intake & Output
01/22/25 01/23/25 01/24/25 01/25/25
06:59 06:59 06:59 06:59
Intake Total 120 / 120 720 / 720
Output Total 1400 / 1400
Balance -1280 / -1280 720 / 720
Physical Exam
Physical Exam
GEN: No distress, awake, alert, oriented x3
HEENT: supple, anicteric, mmm
LUNGS: CTA b/l, no wheezes/rales
CV: Reg, S1/S2, no murmur
EXT: No clubbing, cyanosis, or edema
NEURO: Gross non-focal
SKIN: Warm, dry, no rash
[2025-01-24 07:49] VITALS: BP 141/70
[2025-01-24] MEDS: ZEBETA 5 MG PO (08:47)
[2025-01-24] MEDS: NORVASC 10 MG PO (08:47)
[2025-01-24 09:28] LABS: ALT (SGPT) 15 U/L (0-35); AST (SGOT) 22 U/L (14-36); Albumin 4.1 g/dl (3.5-5.0); Alkaline Phosphatase 68 U/L (38-126); Blood Urea Nitrogen 29 mg/dl (7-17); Calcium 9.4 mg/dl (8.4-10.2); Carbon Dioxide 36 mmol/L (22-30); Chloride 95 mmol/L (98-107); Estimated Creatinine Clearance 61 ml/min; Glucose 133 mg/dl (70-99); Potassium 4.1 mmol/L (3.5-5.1); Sodium 138 mmol/L (135-145); Total Bilirubin 1.1 mg/dl (0.2-1.3); Total Protein 7.3 g/dl (6.3-8.2); eGFR > 60.00
[2025-01-24 11:34] VITALS: BP 121/67
--- NOTE | 2025-01-24 12:07 | W.PN.HOSP.TC ---
Today's Communication/Plan
-
Monitor vital signs see plan
Amatory pulse ox
Wean oxygen as tolerated
Discussed with daughter at bedside
Discharge planning
Assessment / Plan
Assessment / Plan
Impression:
Acute hypoxemic respiratory insufficiency secondary to transient pulmonary edema
Metabolic encephalopathy secondary to above, currently resolved
Other conditions:
Sick sinus syndrome status post dual-chamber pacemaker 03/18
Essential hypertension.
Chronic metabolic alkalosis
Chronic thrombocytopenia of unknown significance
trauma with cervical spine disease 2023 at [facility]
Plan:
Acute hypoxic respiratory insufficiency secondary to transient pulmonary edema
CT scan of the chest on admission negative for pulm embolism and findings consistent with groundglass appearance.
Patient with no prior history of heart failure or CAD
Natriuretic peptide within normal limits.
Echocardiogram with LVEF of 61%. Mildly enlarged RV with pulmonary hypertension PAP 38 mmHg.
ECG and cardiac markers not consistent with ischemia
Was given trial of IV Lasix, discussed with cardiology. Does not appear will benefit from outpatient Lasix
Patient was on 4 L, now on 2 L.
Patient is in need of oxygen at 2 liters/minute via nasal cannula continuously due to pulse oximetry of 84% on room air at rest. Oxygen will help to improve hypoxemia. Patient is mobile within the home. lasix therapy has been tried and is
ineffective in treating hypoxemia related symptoms. Oxygen is needed to improve symptoms.
Patient with no prior history of COPD. Dyspnea now has chronic metabolic alkalosis. VBG not suggestive of respiratory acidosis although
Noted right hemidiaphragm elevation could play a role to current presentation with possibility of reexpansion of pulmonary edema.
Echo 01/23 with preserved EF, mildly dilated right ventricle
Hold further diuresis.
Monitor overnight.
Need home O2
Will need to follow-up with cardiology and pulmonary services outpatient
Will need further evaluation including PFTs as outpatient.
Discussed with patient's daughter at bedside. Patient had cervical spine injury last year and was at [facility]. She was supposed to follow-up with neurosurgery. Could be possible patient is hypoxic due to her cervical cord injury. Advised
patient and family to follow-up closely with neurosurgery at [facility]. Advised patient for brace which she has
General: Well Developed and No Apparent Distress
HEENT: Normocephalic, Atraumatic and Moist Mucous Membranes
Respiratory: Clear to Auscultation
Cardiac: Regular Rhythm and S1/S2; Negative Murmur, Rub or Gallop
GI: Soft, Nontender, Nondistended and Normal Bowel Sounds; Negative Organomegaly
Rectal: Deferred by Provider
Musculoskeletal: No Clubbing, No Cyanosis and No Edema
Skin: Negative Rash
Neuro: Nonfocal/Grossly Intact
Anticipated Discharge: Within 24 hours
Subjective/Interval History
-
Date of Service: January 24, 2025
denies pain
Objective Data
-
Labs:
Laboratory Results
01/24/25
08:19
Sodium 138
Potassium 4.1
Chloride 95 L
Carbon Dioxide 36 H
BUN 29 H
Creatinine 0.8
Glucose 133 H
Calcium 9.4
Total Bilirubin 1.1
AST 22
ALT 15
Alkaline Phosphatase 68
Vital Signs:
Vital Signs
Temp Pulse Resp BP Pulse Ox
97.8 F 68 16 121/67 94
01/24/25 11:34 01/24/25 11:34 01/24/25 11:34 01/24/25 11:34 01/24/25 11:34
I&O
01/23/25 01/24/25 01/25/25
06:59 06:59 06:59
Intake Total 120 / 120 720 / 720
Output Total 1400 / 1400
Balance -1280 / -1280 720 / 720
[2025-01-24 15:21] VITALS: BP 124/60
--- NOTE | 2025-01-24 15:46 | CHAP ---
Maricruz was in good spirits, with her son at her side. She has a positive attitude - welcomed prayer. Emotional and spiritual support provided.
--- NOTE | 2025-01-24 17:08 | W.PN.PUL3 ---
Today's Communication / Plan
-
Up OOB as tolerated
PT already evaluated her and no services are needed
Home O2 assessment prior to discharge
Maintain SpO2 >90-94%
Rales heard today on exam, likely due to mucous � start Mucinex + DuoNebs
Outpatient PFTs and discussion of sleep disordered breathing; consider repeating echo in the next 3 to 6 months. Follow-up as an outpatient with cardiology
Believes she can be ready for discharge in the next 24-48 hours
Pulmonary service will continue to follow along while she remains hospitalized
Assessment
-
84-year-old woman with past medical history noted, admitted with confusion. Found to be hypoxemic. CT chest demonstrated possible evidence for pulmonary hypertension, pulmonary edema. We were consulted for evaluation on 01/22/2025.
Acute hypoxemic respiratory insufficiency-likely pulmonary edema
84% on room air-95% on 2 L nasal cannula.
COVID/flu negative
proBNP 371
Toxic metabolic encephalopathy/headache
CT head negative
Chronic respiratory acidosis
Right hemidiaphragm elevation
Conditions present prior admission:
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
Hypertension
Thrombocytopenia
Osteoarthritis
History of laminectomy
Non-smoker
Assessment and plan:
Admitted with confusion and hypoxemia-CT chest noted with increased interstitial markings and subtle groundglass opacities bilaterally. No evidence for acute pulmonary embolism.
Also suggestion of possible ? pulmonary hypertension.
Prior echocardiogram noted in 2022 with mild pulmonary hypertension as her pulmonary artery is roughly 34 mm (ascending aorta is roughly 34-35 mm)
-
proBNP not significantly elevated at 371-received a trial of diuresis on 01/20/2025 + 01/22/2025 with 40 mg IV Lasix each of those days-cardiology correspondence reviewed.
Follow electrolytes and renal function.
-
Patient denies any pulmonary symptoms. Denies shortness of breath, weight gain or weight loss.
Usually at home she states that she is active around the house without significant limitations.
There is no evidence for infection
There is no evidence for interstitial lung disease
Patient denies any prior history of pulmonary problems
-
Patient does not appear toxic
Lung exam has rales on the anterior lung gibbs, possibly due to mucous
Currently on 2L/min sitting comfortably in bed.
Home oxygen assessment prior to discharge
-
Echocardiogram performed on 01/23/2025 showing mild TR with mildly elevated PASP at 38 mmHg, with mildly enlarged RV with normal RV systolic function. LV is also normal size/wall thickness/systolic function with no regional WMA, with LVEF 61% -given
that her pulmonary hypertension is seemingly mild, no additional workup needed at this time urgently. Also her echo was performed in a setting of acute heart failure, which would have raised her PASP as well. Will perform outpatient PFTs and
consider repeating echo in 3 to 6 months to assess stability; follow-up outpatient as well with cardiology
VBG 01/22/2025 noted: 7.42/53/42.
Patient does have some degree of metabolic alkalosis from chronic respiratory acidosis. Denies snoring, denies chronic fatigue.
-
-
DVT ppx: LMWH
-
Will follow. I think she can be ready for discharge in the next 24-48 hours. Outpatient pulmonary office follow-up will be arranged.

Data reviewed:
2D echo 03/07/2023: EF 55-60%, normal LVS LVSF, no wall abnormalities, mild LVH, trace AR, trace TR, PASP 38 mmHg
-
CT angiogram: 01/22/2025 Reviewed, showed no evidence for pulmonary embolism.
Prominent caliber bilateral right and main pulmonary arteries. Slight prominence of pulmonary interstitium with minor groundglass opacification bilaterally. Interstitial edema.
Cardiomegaly. Elevated right hemidiaphragm. Small amount of loculated fluid in the left major fissure.
Total time spent today was 36 minutes for this encounter. Time includes reviewing laboratory test/imaging results, reviewing pertinent medical records, obtaining and reviewing medical history, performing an appropriate exam, ordering medications,
tests and procedures. Time also includes documentation of this encounter, coordinating patient care and communicating with other healthcare professionals. Total time does not include separately billed tests performed on this date of service.
Subjective Data
-
Date of Service:
Date of Service: January 24, 2025
Chief Complaint: Pulmonary Follow Up
Subjective:
Patient seen earlier today (late note entry). Currently on 2 L/min nasal cannula, saturating 94%. She denies shortness of breath. Also denies chest pain, LINDA, nausea, fevers or chills.
Review of Systems
General: Other (Negative unless mentioned above)
Objective Data
Data Reviewed
Vital Signs / I&O / Oxygen:
Vital Signs
Temp Pulse Resp BP Pulse Ox
98.3 F 77 16 141/70 93
01/24/25 07:49 01/24/25 08:47 01/24/25 07:49 01/24/25 08:47 01/24/25 07:49
Intake and Output
01/23/25 01/24/25 01/25/25
06:59 06:59 06:59
Intake Total 120 / 120 720 / 720
Output Total 1400 / 1400
Balance -1280 / -1280 720 / 720
SaO2 93
Nasal Cannula flow liters per 4
minute
Physical Exam
General: Respiratory Distress (negative), Comfortable, Chills (negative), Sweats (negative) and Other (NAD; pleasant mood)
HEENT: Normocephalic and Anicteric
Cardiovascular: S1-S2 and Peripheral Edema (negative)
Respiratory: Wheeze (negative), Crackles (Bilaterally predominantly in the upper lobe), Rhonchi (negative) and Non-Labored Respirations
GI: Soft, Distended (Abdominal obesity), Non Tender and Normal Bowel Sounds
Neurology: Awake, Alert and Tremors (negative)
Skin: Warm, Dry, Cyanosis (negative) and Jaundice (negative)
Labs/Micro/Reports
Lab Data
01/23/25 07:12
01/24/25 08:19
Microbiology
01/22/25 14:16 Nasal Swab Influenza Types A & B (RUDY) - Final
Negative for Influenza A & B, NAAT
Negative results must be combined with clinical observations
and patient history.
Nucleic Acid Amplification test (NAAT)performed on the
[employer] platform.
[2025-01-24] MEDS: LOVENOX 40 MG SC (17:43)
[2025-01-24 19:39] VITALS: BP 132/76
[2025-01-24 23:36] VITALS: BP 129/68
[2025-01-25 03:35] VITALS: BP 130/65
[2025-01-25 06:00] VITALS: BMI 36.2
[2025-01-25 07:17] VITALS: BP 131/67
[2025-01-25] MEDS: DUONEB 3 ML INH ×3 (07:18→19:07)
[2025-01-25] MEDS: MUCINEX 1200 MG PO ×2 (07:54→19:45)
[2025-01-25] MEDS: NORVASC 10 MG PO (07:55)
[2025-01-25] MEDS: ZEBETA 5 MG PO (07:55)
[2025-01-25 08:10] LABS: % Basophils 0.5 % (0-2); % Eosinophils 2.5 % (0-6); % Immature Granulocytes 0.3 % (0-0.5); % Lymphocytes 26.3 % (20.5-51.1); % Monocytes 12.4 % (1.7-9.3); Absolute Eosinophils 0.2 10^3/uL (0-0.7); Absolute Neutrophils 4.4 10^3/uL (1.4-6.5); Hematocrit 43.8 % (37.0-47.0); Hemoglobin 14.2 g/dL (12.0-16.0); Mean Corp Hgb Conc. 32.4 g/dL (33.0-37.0); Mean Corpuscular Hgb 27.8 pg (27.0-31.0); Mean Corpuscular Volume 85.9 fL (81.0-99.0); Mean Platelet Volume 11.3 fL (7.4-10.4); Nucleated Red Blood Cells % 0 %; Platelet Count 105 10^3/uL (130-400); Red Cell Dist. Width 13.7 % (11.5-14.5); White Blood Cell Count 7.6 10^3/uL (4.8-10.8)
[2025-01-25 08:28] LABS: ALT (SGPT) 18 U/L (0-35); AST (SGOT) 25 U/L (14-36); Albumin 3.9 g/dl (3.5-5.0); Alkaline Phosphatase 64 U/L (38-126); Blood Urea Nitrogen 30 mg/dl (7-17); Carbon Dioxide 37 mmol/L (22-30); Chloride 97 mmol/L (98-107); Estimated Creatinine Clearance 70 ml/min; Glucose 97 mg/dl (70-99); Potassium 4.3 mmol/L (3.5-5.1); Sodium 138 mmol/L (135-145); Total Protein 6.8 g/dl (6.3-8.2); eGFR > 60.00
--- NOTE | 2025-01-25 09:39 | CM ---
Patient with Dx Acute hypoxemic respiratory insufficiency secondary to transient pulmonary edema.
O2 sat 94% 2L, O2 sat 83% RA.
PT recommends Home PT vs No needs. OT; no skilled OT needed.
CM Consult: Home O2
Spoke with patient and daughter Flora;
they both agree to d/c home tomorrow to daughter Flora's house with home O2 setup through [employer] with concentrator/portables.
Patient and daughter agree to [facility] for SN & PT and patient chooses [facility] - referral placed.
[facility] .
Spoke with Raphael Warner and referral sent via [employer].
Plan home tomorrow with Home O2 setup through [employer], with [facility].
[2025-01-25 11:10] VITALS: BP 108/58
--- NOTE | 2025-01-25 11:11 | W.PN.HOSP.TC ---
Today's Communication/Plan
-
Monitor vital signs see plan
Need 2L oxygen, manager of case aware to set up home O2.
family not ready for dc today
Assessment / Plan
Assessment / Plan
Impression:
Acute hypoxemic respiratory insufficiency secondary to transient pulmonary edema
Metabolic encephalopathy secondary to above, currently resolved
Other conditions:
Sick sinus syndrome status post dual-chamber pacemaker 03/18
Essential hypertension.
Chronic metabolic alkalosis
Chronic thrombocytopenia of unknown significance
trauma with cervical spine disease 2023 at [facility]
Plan:
Acute hypoxic respiratory insufficiency secondary to transient pulmonary edema
CT scan of the chest on admission negative for pulm embolism and findings consistent with groundglass appearance.
Patient with no prior history of heart failure or CAD
Natriuretic peptide within normal limits.
Echocardiogram with LVEF of 61%. Mildly enlarged RV with pulmonary hypertension PAP 38 mmHg.
ECG and cardiac markers not consistent with ischemia
Was given trial of IV Lasix, discussed with cardiology. Does not appear will benefit from outpatient Lasix
Patient was on 4 L, now on 2 L.
Patient is in need of oxygen at 2 liters/minute via nasal cannula continuously due to pulse oximetry of 84% on room air at rest. Oxygen will help to improve hypoxemia. Patient is mobile within the home. lasix therapy has been tried and is
ineffective in treating hypoxemia related symptoms. Oxygen is needed to improve symptoms.
Patient with no prior history of COPD. Dyspnea now has chronic metabolic alkalosis. VBG not suggestive of respiratory acidosis although
Noted right hemidiaphragm elevation could play a role to current presentation with possibility of reexpansion of pulmonary edema.
Echo 01/23 with preserved EF, mildly dilated right ventricle
Hold further diuresis.
Monitor overnight.
Need home O2
Will need to follow-up with cardiology and pulmonary services outpatient
Will need further evaluation including PFTs as outpatient.
Discussed with patient's daughter at bedside. Patient had cervical spine injury last year and was at [facility]. She was supposed to follow-up with neurosurgery. Could be possible patient is hypoxic due to her cervical cord injury. Advised
patient and family to follow-up closely with neurosurgery at [facility]. Advised patient for brace which she has
General: Well Developed and No Apparent Distress
HEENT: Normocephalic, Atraumatic and Moist Mucous Membranes
Respiratory: Clear to Auscultation
Cardiac: Regular Rhythm and S1/S2; Negative Murmur, Rub or Gallop
GI: Soft, Nontender, Nondistended and Normal Bowel Sounds
Rectal: Deferred by Provider
Musculoskeletal: No Clubbing, No Cyanosis and No Edema
Skin: Negative Rash
Neuro: Nonfocal/Grossly Intact
Anticipated Discharge: Within 24 hours
Subjective/Interval History
-
Date of Service: January 25, 2025
Denies chest pain
Objective Data
-
Labs:
Laboratory Results
01/25/25
06:57
WBC 7.6
Hgb 14.2
Hct 43.8
Plt Count 105 L
Sodium 138
Potassium 4.3
Chloride 97 L
Carbon Dioxide 37 H
BUN 30 H
Creatinine 0.7
Glucose 97
Calcium 9.0
Total Bilirubin 1.0
AST 25
ALT 18
Alkaline Phosphatase 64
Vital Signs:
Vital Signs
Temp Pulse Resp BP Pulse Ox
98.2 F 66 17 108/58 95
01/25/25 11:10 01/25/25 11:10 01/25/25 11:10 01/25/25 11:10 01/25/25 11:10
I&O
01/24/25 01/25/25 01/26/25
06:59 06:59 06:59
Intake Total 720 / 720 720 / 720
Balance 720 / 720 720 / 720
--- NOTE | 2025-01-25 14:50 | W.PN.PUL3 ---
Today's Communication / Plan
-
Up OOB as tolerated
PT already evaluated her and no services are needed
Home O2 assessment prior to discharge
Maintain SpO2 >90-94%
Rales heard on exam mainly in upper lobes, likely due to mucous � continue Mucinex + DuoNebs
Outpatient PFTs and discussion of sleep disordered breathing; consider repeating echo in the next 3 to 6 months. Follow-up as an outpatient with cardiology
Believe she will be ready for discharge in the next 24-48 hours
Pulmonary service will continue to follow along while she remains hospitalized
Assessment
-
84-year-old woman with past medical history noted, admitted with confusion. Found to be hypoxemic. CT chest demonstrated possible evidence for pulmonary hypertension, pulmonary edema. We were consulted for evaluation on 01/22/2025.
Acute hypoxemic respiratory insufficiency-likely pulmonary edema
84% on room air-95% on 2 L nasal cannula.
COVID/flu negative
proBNP 371
Toxic metabolic encephalopathy/headache
CT head negative
Chronic respiratory acidosis
Right hemidiaphragm elevation
Conditions present prior admission:
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
Hypertension
Thrombocytopenia
Osteoarthritis
History of laminectomy
Non-smoker
Assessment and plan:
Admitted with confusion and hypoxemia-CT chest noted with increased interstitial markings and subtle groundglass opacities bilaterally. No evidence for acute pulmonary embolism.
Also suggestion of possible ? pulmonary hypertension.
Prior echocardiogram noted in 2022 with mild pulmonary hypertension as her pulmonary artery is roughly 34 mm (ascending aorta is roughly 34-35 mm)
-
proBNP not significantly elevated at 371-received a trial of diuresis on 01/20/2025 + 01/22/2025 with 40 mg IV Lasix each of those days-cardiology correspondence reviewed.
Follow electrolytes and renal function.
-
Patient denies any pulmonary symptoms. Denies shortness of breath, weight gain or weight loss.
Usually at home she states that she is active around the house without significant limitations.
There is no evidence for infection
There is no evidence for interstitial lung disease
Patient denies any prior history of pulmonary problems
-
Patient does not appear toxic
Lung exam has rales on the anterior lung gibbs, possibly due to mucous--> continue Mucinex + DuoNebs
Currently on 2L/min sitting comfortably in bed.
Home oxygen assessment prior to discharge
-
Echocardiogram performed on 01/23/2025 showing mild TR with mildly elevated PASP at 38 mmHg, with mildly enlarged RV with normal RV systolic function. LV is also normal size/wall thickness/systolic function with no regional WMA, with LVEF 61% -given
that her pulmonary hypertension is seemingly mild, no additional workup needed at this time urgently. Also her echo was performed in a setting of acute heart failure, which would have raised her PASP as well. Will perform outpatient PFTs and
consider repeating echo in 3 to 6 months to assess stability; follow-up outpatient as well with cardiology
VBG 01/22/2025 noted: 7.42/53/42.
Patient does have some degree of metabolic alkalosis from chronic respiratory acidosis. Denies snoring, denies chronic fatigue.
-
-
DVT ppx: LMWH
-
Will follow. I think she can be ready for discharge in the next 24-48 hours. Outpatient pulmonary office follow-up will be arranged.

Data reviewed:
2D echo 03/07/2023: EF 55-60%, normal LVS LVSF, no wall abnormalities, mild LVH, trace AR, trace TR, PASP 38 mmHg
-
CT angiogram: 01/22/2025 Reviewed, showed no evidence for pulmonary embolism.
Prominent caliber bilateral right and main pulmonary arteries. Slight prominence of pulmonary interstitium with minor groundglass opacification bilaterally. Interstitial edema.
Cardiomegaly. Elevated right hemidiaphragm. Small amount of loculated fluid in the left major fissure.
Total time spent today was 39 minutes for this encounter. Time includes reviewing laboratory test/imaging results, reviewing pertinent medical records, obtaining and reviewing medical history, performing an appropriate exam, ordering medications,
tests and procedures. Time also includes documentation of this encounter, coordinating patient care and communicating with other healthcare professionals. Total time does not include separately billed tests performed on this date of service.
Subjective Data
-
Date of Service:
Date of Service: January 25, 2025
Chief Complaint: Pulmonary Follow Up
Subjective:
Patient seen earlier today (late note entry). Denies shortness of breath with activity, and denies cough. Currently on 2 L/min nasal cannula. Patient's son, Janes, at bedside and all questions were answered. She feels well overall and is eager
to go home.
Review of Systems
General: Other (Negative unless mentioned above)
Objective Data
Data Reviewed
Vital Signs / I&O / Oxygen:
Vital Signs
Temp Pulse Resp BP Pulse Ox
98.0 F 84 18 131/67 94
01/25/25 07:17 01/25/25 07:22 01/25/25 07:22 01/25/25 07:17 01/25/25 08:27
Intake and Output
01/24/25 01/25/25 01/26/25
06:59 06:59 06:59
Intake Total 720 / 720 720 / 720
Balance 720 / 720 720 / 720
SaO2 94
Nasal Cannula flow liters per 2
minute
Physical Exam
General: Respiratory Distress (negative), Comfortable, Chills (negative), Sweats (negative) and Other (NAD; pleasant mood)
HEENT: Normocephalic and Anicteric
Cardiovascular: S1-S2 and Peripheral Edema (negative)
Respiratory: Wheeze (negative), Crackles (Bilaterally predominantly in the upper lobes + RLL), Rhonchi (negative) and Non-Labored Respirations
GI: Soft, Distended (Abdominal obesity), Non Tender and Normal Bowel Sounds
Neurology: Awake, Alert and Tremors (negative)
Skin: Warm, Dry, Cyanosis (negative) and Jaundice (negative)
Labs/Micro/Reports
Lab Data
01/25/25 06:57
01/25/25 06:57
Microbiology
01/22/25 14:16 Nasal Swab Influenza Types A & B (RUDY) - Final
Negative for Influenza A & B, NAAT
Negative results must be combined with clinical observations
and patient history.
Nucleic Acid Amplification test (NAAT)performed on the
[employer] platform.
[2025-01-25 14:58] VITALS: BP 115/56
[2025-01-25] MEDS: LOVENOX 40 MG SC (17:01)
[2025-01-25 19:56] VITALS: BP 130/63
[2025-01-25 23:13] VITALS: BP 142/66
[2025-01-26 02:56] VITALS: BP 127/71
[2025-01-26] MEDS: DUONEB 3 ML INH ×2 (05:31→12:09)
[2025-01-26 06:00] VITALS: BMI 36.3
[2025-01-26 07:18] LABS: % Basophils 0.4 % (0-2); % Eosinophils 1.5 % (0-6); % Immature Granulocytes 0.3 % (0-0.5); % Lymphocytes 36.7 % (20.5-51.1); % Monocytes 9.5 % (1.7-9.3); % Neutrophils 51.6 % (42.2-75.2); Absolute Eosinophils 0.1 10^3/uL (0-0.7); Absolute Lymphocytes 2.9 10^3/uL (1.2-3.4); Absolute Monocytes 0.7 10^3/uL (0.1-0.6); Hematocrit 41.5 % (37.0-47.0); Hemoglobin 13.6 g/dL (12.0-16.0); Mean Corp Hgb Conc. 32.8 g/dL (33.0-37.0); Mean Corpuscular Hgb 28.4 pg (27.0-31.0); Mean Corpuscular Volume 86.6 fL (81.0-99.0); Mean Platelet Volume 11.8 fL (7.4-10.4); Nucleated Red Blood Cells % 0 %; Platelet Count 100 10^3/uL (130-400); Red Blood Cell Count 4.79 10^6/uL (4.20-5.40); Red Cell Dist. Width 13.6 % (11.5-14.5); White Blood Cell Count 7.8 10^3/uL (4.8-10.8)
[2025-01-26 07:27] VITALS: BP 124/58
[2025-01-26 07:27] LABS: ALT (SGPT) 18 U/L (0-35); AST (SGOT) 22 U/L (14-36); Albumin 4.2 g/dl (3.5-5.0); Alkaline Phosphatase 71 U/L (38-126); Blood Urea Nitrogen 28 mg/dl (7-17); Calcium 9.2 mg/dl (8.4-10.2); Carbon Dioxide 36 mmol/L (22-30); Chloride 96 mmol/L (98-107); Estimated Creatinine Clearance 81 ml/min; Glucose 108 mg/dl (70-99); Potassium 3.9 mmol/L (3.5-5.1); Sodium 138 mmol/L (135-145); Total Protein 7.1 g/dl (6.3-8.2); eGFR > 60.00
[2025-01-26] MEDS: MUCINEX 1200 MG PO (07:39)
[2025-01-26] MEDS: ZEBETA 5 MG PO (07:39)
[2025-01-26] MEDS: NORVASC 10 MG PO (07:39)
[2025-01-26 09:54] VITALS: O2SAT 96
[2025-01-26 10:56] VITALS: BP 138/86
--- NOTE | 2025-01-26 11:14 | PN.CDI ---
CDI
- -
CDI:
Physician Documentation Request
Admit Date: 01/22/25 17:40
Dear Doctor Constance,
Please review the following and provide your response in the progress notes.
Clinical Indicators:
Pt admitted with Acute hypoxemic respiratory insufficiency, transient pulmonary edema and Metabolic encephalopathy.
01/24 Progress note: 'Was given trial of IV Lasix, discussed with cardiology. Does not appear will benefit from outpatient Lasix
Patient was on 4 L, now on 2 L.'
Clarify which of the following accurately represents the acuity of the Pulmonary edema. Possible options might include:
Acute pulmonary edema
Chronic pulmonary edema
Other
Use of terms such as suspected, likely, concern for, or probable (associated with a specific diagnosis that is being evaluated, monitored, or treated as if it exists) are acceptable and can be coded in the inpatient setting, when documented at the
time of discharge.
Thank you,
Leah Broderick RN, BSN
CDI Specialist
[facility]
Please use your independent medical judgment in providing your response.
--- NOTE | 2025-01-26 11:41 | CM ---
Spoke with Kajal from [facility]. Faxed over updated clinical.
Plan: Case management will continue to follow and assist with discharge planning. Home with [facility].
--- NOTE | 2025-01-26 13:52 | W.PN.PUL3 ---
Today's Communication / Plan
-
Maintained on 3L, home O2 eval placed
Encouraged OOB/PT/OT
Wants to go home, not on IV steroids
Discharge planning per team, ok from our perspective
Assessment
-
84-year-old woman with past medical history noted, admitted with confusion. Found to be hypoxemic. CT chest demonstrated possible evidence for pulmonary hypertension, pulmonary edema. We were consulted for evaluation on 01/22/2025.
Acute hypoxemic respiratory insufficiency-likely pulmonary edema
84% on room air-95% on 2 L nasal cannula.
COVID/flu negative
proBNP 371
Toxic metabolic encephalopathy/headache
CT head negative
Chronic respiratory acidosis
Right hemidiaphragm elevation
Conditions present prior admission:
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
Hypertension
Thrombocytopenia
Osteoarthritis
History of laminectomy
Non-smoker
Plan:
Currently on 3L NC
Home O2 eval discussed
Admitted with confusion and hypoxemia-CT chest noted with increased interstitial markings and subtle groundglass opacities bilaterally. No evidence for acute pulmonary embolism.
Also suggestion of possible ? pulmonary hypertension.
Prior echocardiogram noted in 2022 with mild pulmonary hypertension as her pulmonary artery is roughly 34 mm (ascending aorta is roughly 34-35 mm)
proBNP not significantly elevated at 371-received a trial of diuresis on 01/20/2025 + 01/22/2025 with 40 mg IV Lasix each of those days-cardiology correspondence reviewed.
Follow electrolytes and renal function.
-
Patient denies any pulmonary symptoms. Denies shortness of breath, weight gain or weight loss.
Usually at home she states that she is active around the house without significant limitations.
There is no evidence for infection
There is no evidence for interstitial lung disease
Patient denies any prior history of pulmonary problems
-
Patient does not appear toxic
Lung exam has rales on the anterior lung gibbs, possibly due to mucous--> continue Mucinex + DuoNebs
Currently on 2L/min sitting comfortably in bed.
Home oxygen assessment prior to discharge
-
Echocardiogram performed on 01/23/2025 showing mild TR with mildly elevated PASP at 38 mmHg, with mildly enlarged RV with normal RV systolic function. LV is also normal size/wall thickness/systolic function with no regional WMA, with LVEF 61% -given
that her pulmonary hypertension is seemingly mild, no additional workup needed at this time urgently. Also her echo was performed in a setting of acute heart failure, which would have raised her PASP as well. Will perform outpatient PFTs and
consider repeating echo in 3 to 6 months to assess stability; follow-up outpatient as well with cardiology
VBG 01/22/2025 noted: 7.42/53/42.
Patient does have some degree of metabolic alkalosis from chronic respiratory acidosis. Denies snoring, denies chronic fatigue.
DVT ppx: LMWH
-
Outpatient pulmonary office follow-up will be arranged.
Discharge planning per team

Data reviewed:
2D echo 03/07/2023: EF 55-60%, normal LVS LVSF, no wall abnormalities, mild LVH, trace AR, trace TR, PASP 38 mmHg
-
CT angiogram: 01/22/2025 Reviewed, showed no evidence for pulmonary embolism.
Prominent caliber bilateral right and main pulmonary arteries. Slight prominence of pulmonary interstitium with minor groundglass opacification bilaterally. Interstitial edema.
Cardiomegaly. Elevated right hemidiaphragm. Small amount of loculated fluid in the left major fissure.
Total time spent today was 45 minutes for this encounter. Time includes reviewing laboratory test/imaging results, reviewing pertinent medical records, obtaining and reviewing medical history, performing an appropriate exam, ordering medications,
tests and procedures. Time also includes documentation of this encounter, coordinating patient care and communicating with other healthcare professionals. Total time does not include separately billed tests performed on this date of service.
Subjective Data
-
Date of Service:
Date of Service: January 26, 2025
Chief Complaint: Pulmonary Follow Up
Subjective:
Doing well, feeling better
Would like to go home
Maintained on 3L
Objective Data
Data Reviewed
Vital Signs / I&O / Oxygen:
Vital Signs
Temp Pulse Resp BP Pulse Ox
97.7 F 89 18 138/86 98
01/26/25 10:56 01/26/25 12:12 01/26/25 12:12 01/26/25 10:56 01/26/25 12:12
Intake and Output
01/25/25 01/26/25 01/27/25
06:59 06:59 06:59
Intake Total 720 / 720 1170 / 1170
Balance 720 / 720 1170 / 1170
SaO2 98
Nasal Cannula flow liters per 3
minute
Physical Exam
General: Respiratory Distress (negative), Comfortable, Chills (negative), Sweats (negative) and Other (NAD; pleasant mood)
HEENT: Normocephalic, Anicteric and Moist Mucous Membranes
Cardiovascular: S1-S2, Regular Rhythm and Peripheral Edema (negative)
Respiratory: Wheeze (negative), Crackles (Bilaterally predominantly in the upper lobes + RLL), Rhonchi (negative) and Non-Labored Respirations
GI: Soft, Distended (Abdominal obesity), Non Tender and Normal Bowel Sounds
Neurology: Awake, Alert and Tremors (negative)
Skin: Warm, Dry, Cyanosis (negative) and Jaundice (negative)
Labs/Micro/Reports
Lab Data
01/26/25 06:45
01/26/25 06:45
--- NOTE | 2025-01-26 14:06 | CM ---
Received notification from attending that patient is medically stable for discharge. Called [employer]. She confirmed that everything is set up for patient. Portable will be delivered prior to her returning, home. Patient stated that her son and
daughter were going to pick her up. She has the # to call for dispatch for [employer] prior to leaving so that concentrator can be dropped off at their house.
IMM reviewed, on chart.
Spoke with Kajal from [facility] who confirmed that they will be out.
Plan: Case management will continue to follow and assist with discharge planning. Home with and [facility].
[2025-01-26 14:32] VITALS: BP 122/66
--- NOTE | 2025-01-26 14:43 | W.DS.TRANS ---
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
-
Discharge Instructions:
Discharge Diagnosis/Procedures Acute hypoxemic respiratory insufficiency
Metabolic encephalopathy
History of cervical spine injury
Diet As tolerated
Activity As tolerated
Driving Restrictions Not until seen by your Dr
Bathing Restrictions None
Specialty Instructions Weigh Daily
Instructions: *[facility] Heart Failure Instructions
Stand-Alone Forms:
Changes to Home Medications: No
Discharge Medications:
DC Medications w/original date entered in [email or web address]
amlodipine 10 mg tablet 10 mg PO DAILY Blood pressure 03/28/18
acetaminophen 500 mg tablet (Tylenol Extra Strength) 1,000 mg PO Q6HPRN PRN mild pain/LINDA 01/22/25
bisoprolol fumarate 5 mg tablet 5 mg PO DAILY Blood Pressure 01/22/25
psyllium husk 3.4 gram/5.4 gram oral powder (Metamucil) 1 tbsp PO DAILY Constipation 01/22/25
Home Medication Changes
Pending Results: No
== END 2025-01-26 16:20 | disposition home health service (06) | DRG 189 ==
LOC: 3 WEST ACU 17:40
PROVIDERS: Clinical Nurse Specialist Family Health; Internal Medicine; Physician Assistant; ADMITTING PHYSICIAN Internal Medicine; ATTENDING PHYSICIAN Internal Medicine; CONSULT PHYSICIAN Internal Medicine Critical Care Medicine; EMERGENCY PHYSICIAN Emergency Medicine; FAMILY PHYSICIAN Nurse Practitioner Family; OTHER PHYSICIAN Internal Medicine Cardiovascular Disease
DX: J81.0 Acute pulmonary edema (principal); G92.8 Other toxic encephalopathy; E87.3 Alkalosis; I10 Essential (primary) hypertension; M19.90 Unspecified osteoarthritis, unspecified site; N28.1 Cyst of kidney, acquired; R41.0 Disorientation, unspecified; R06.89 Other abnormalities of breathing; R09.02 Hypoxemia; D69.6 Thrombocytopenia, unspecified; I44.0 Atrioventricular block, first degree; I27.20 Pulmonary hypertension, unspecified; I25.10 Atherosclerotic heart disease of native coronary artery without angina pectoris; Z82.62 Family history of osteoporosis; Z82.49 Family history of ischemic heart disease and other diseases of the circulatory system; Z82.0 Family history of epilepsy and other diseases of the nervous system; Z79.82 Long term (current) use of aspirin; Z95.0 Presence of cardiac pacemaker; Z88.1 Allergy status to other antibiotic agents; Z91.040 Latex allergy status; Z87.828 Personal history of other (healed) physical injury and trauma; Z11.52 Encounter for screening for COVID-19
CPT/HCPCS: 70450; 71275; 80053; 80061; 82805; 83880; 84484; 85025; 85610; 87502; 87811; 93005; 93306; 94640; 96374; 97162; 97166; 97530; 99285; Q9967

== ENCOUNTER → 2025-06-11 14:18 | Outpatient (REF) | payer OTHER, SELFPAY | LOC: HWRAD 14:18 | PROVIDERS: ATTENDING PHYSICIAN Nurse Practitioner Family | DX: M85.80 Other specified disorders of bone density and structure, unspecified site (principal) | CPT/HCPCS: 77080 ==